=== PATIENT | female | born 1955 | race Caucasian/White ===

== ENCOUNTER 2020-08-25 14:48 | Emergency (ER) | payer BC ==
[2020-08-25] MEDS ORDERED: Acetaminophen/HYDROcodone 325-5 MG Tab PO ONE (15:49)
--- NOTE | 2020-08-25 15:51 | EDM.PDOC ---
ED HPI GENERAL MEDICAL PROBLEM - General Chief Complaint: Lower Extremity Injury/Pain Stated Complaint: INJURED LEFT KNEE ON UNEVEN GROUND Time Seen by Provider: 08/25/20 15:49 Source of Information: Reports: Patient, Family History Limitations: Reports: No Limitations - History of Present Illness INITIAL COMMENTS - FREE TEXT/NARRATIVE: pt was on a elevated step and she came down and put weight on the left leg. She felt like something tore and she now has marked swelling and pain in the knee. Onset: Today, Sudden Duration: Hour(s): Location: Reports: Lower Extremity, Left Associated Symptoms: Reports: No Other Symptoms Left Knee Pain Score (Numeric/FACES): 7 - Related Data Allergies Allergy/AdvReac Type Severity Reaction Status Date / Time No Known Allergies Allergy Verified 08/25/20 15:32 Home Meds: Home Meds Omeprazole 40 mg PO DAILY 08/25/20 [History] Past Medical History [employer] History: Reports: - Infectious Disease History Infectious Disease History: Reports: Chicken Pox, Measles - Past Surgical History HEENT Surgical History: Reports: LASIK, Naso-Sinus Surgery GI Surgical History: Reports: Cholecystectomy Female Surgical History: Reports: Endometrial Ablation Social & Family History - Tobacco Use Tobacco Use Status *Q: Never Tobacco User - Caffeine Use Caffeine Use: Reports: Coffee - Alcohol Use Days Per Week of Alcohol Use: 7 Number of Drinks Per Day: 1 Total Drinks Per Week: 7 - Recreational Drug Use Recreational Drug Use: No Review of Systems - Review of Systems Review Of Systems: See Below Constitutional: Reports: No Symptoms Eyes: Reports: No Symptoms Ears: Reports: No Symptoms Nose: Reports: No Symptoms Mouth/Throat: Reports: No Symptoms Respiratory: Reports: No Symptoms Cardiovascular: Reports: No Symptoms GI/Abdominal: Reports: No Symptoms Genitourinary: Reports: No Symptoms Musculoskeletal: Reports: Other ( acute pain in the left knee. ) ED EXAM, GENERAL - Physical Exam Exam: See Below Free Text/Narrative:: pt arrived with a painful swollen left knee after she twisted the knee. She came down off a higher area and the knee twisted. Exam Limited By: No Limitations General Appearance: Alert, Anxious Extremities: Other (pt has considerable swelling and probably has blood in the joint. She is having difficulty bearing weight on the left leg. P has been applying ice to the knee. ) Neurological: Alert, Oriented, Normal Cognition Course - Vital Signs Last Recorded V/S: Last Vital Signs Temp 36.8 C 08/25/20 15:30 Pulse 63 08/25/20 15:30 Resp 16 08/25/20 15:30 BP 150/67 H 08/25/20 15:30 Pulse Ox 100 08/25/20 15:30 - Orders/Labs/Meds Meds: Medications Discontinued Medications Generic Name Dose Route Start Last Admin Trade Name Freq PRN Reason Stop Dose Admin Hydrocodone Bitart/Acetaminophen 1 tab 08/25/20 15:49 08/25/20 15:55 Acetaminophen/Hydrocodone 325-5 Mg Tab PO 08/25/20 15:50 1 tab ONETIME ONE Administration - Re-Assessments/Exams Free Text/Narrative Re-Assessment/Exam: 08/26/20 18:55 xray does not show a definite fracture. The tibial plateau does look slightly disrupted. Will obtaine a MRI on the knee and will do a ortho referal. Departure - Departure Time of Disposition: 17:24 Disposition: Home, Self-Care 01 Condition: Fair Clinical Impression: Torn ligament, Bleeding into joint - Discharge Information Instructions: Acute Knee Pain, Adult Referrals: PCP,None [Primary Care Provider] - Forms: ED Department Discharge Care Plan Goals: pt needs to see ortho tomorrow, may need a MRI and may need to have the joint drained. percocet 5/325 q6h prn for pain, crutches, continue to ice pack through the nite. Sepsis Event Note (ED) - Evaluation Sepsis Screening Result: No Definite Risk
--- NOTE | 2020-08-26 12:02 | CR ---
Knee Min 4V Lt CLINICAL HISTORY: Pain and swelling FINDINGS: There is some transverse lucency involving the lateral tibial plateau from the intercondylar eminence. Impaction fracture is suspected. Chronology is uncertain There are no osseous lesions. There is joint space narrowing in the medial and lateral compartments. Patient is a joint effusion. Impression: Transverse density across the lateral tibial plateau is suspicious for previous impaction fracture of the tibial plateau. Chronology is uncertain Osteoarthritic change Joint effusion versus hemarthrosis
== END 2020-08-25 18:28 | disposition home or self-care (01) ==
LOC: JP.ED 14:48
DX: S83.92XA Sprain of unspecified site of left knee, initial encounter (principal); Z79.899 Other long term (current) drug therapy; X50.1XXA Overexertion from prolonged static or awkward postures, initial encounter
CPT/HCPCS: 73564-26-LT; 73564-LT; 99283; 99283-25; A9270-GY